=== PATIENT | male | born 1950 | race Caucasian/White ===

== ENCOUNTER 2017-01-18 07:49 | Day surgery (SDC) | payer MEDICARE, OTHER ==
[~2017-01-18 07:49] MED LIST: ASPIRIN EC81 MG PO; CIALIS5 M1 PO; GLUCOSAMINE &1 EAC1 PO; OCUVITE WITH L1 EACH PO; TOPROL XL100 M1 PO; ZOCOR40 M1 PO
[2017-01-18 08:55] LABS: BASO % 0.3 % (0-2); EOS % 2.6 % (0-7); EOSINOPHIL ABSOLUTE COUNT 0.2 tho/cmm (0.0-0.7); HCT-HEMATOCRIT 44.4 % (36.0-53.5); LYMPH % 39.8 % (20-45); LYMPH ABSOLUTE COUNT 2.3 tho/cmm (0.8-4.5); MCH (MEAN CORPUSCULAR HGB) 32.3 pg (28.0-32.0); MCHC MEAN CORPUSCULAR HGB CONC 33.8 % (32.0-36.0); MCV (MEAN CELL VOLUME) 95.7 fl (82.0-96.0); MEAN PLATELET VOLUME 9.1 cmc (9.4-12.4); MONO % 8.9 % (0-12); MONOCYTE ABSOLUTE COUNT 0.5 tho/cmm (0.0-1.2); NEUTROPHIL ABSOLUTE COUNT 2.8 tho/cmm (1.6-8.0); NEUTROPHIL-AUTOMATED 2.8 tho/cmm (1.6-8.0); NEUTROPHILS % 48.4 % (40-80); PLATELET COUNT 193 tho/cmm (150-450); RED BLOOD COUNT 4.64 mil/cmm (4.40-5.70); RED CELL DISTRIBUTION WIDTH 12.7 % (12.4-16.4); WHITE BLOOD COUNT 5.8 tho/cmm (4.0-10.0)
[2017-01-18 09:01] LABS: ANION GAP 9 mmol/L (0-20); BLOOD UREA NITROGEN 9 mg/dl (6-24); CALCIUM 8.4 mg/dl (8.5-10.5); CARBON DIOXIDE-VENOUS 29 mmol/L (22-32); CHLORIDE 108 mmol/l (96-110); CREATININE 0.85 mg/dl (0.60-1.30); GLUCOSE 108 mg/dL (70-110); POTASSIUM 4.1 mmol/L (3.7-5.1); SODIUM 142 mmol/L (135-145); eGFR VALUE FOR BLACK >90 mL/Min
== END 2017-01-18 14:00 ==
LOC: US 07:49 → SHSB 08:12 → ORW 10:38 → PACU 12:11 → SHSB 12:45
PROVIDERS: Anesthesiology
PROC: 0JB50ZZ Excision of Left Neck Subcutaneous Tissue and Fascia, Open Approach (ICD-10-PCS; principal; 2017-01-18)
DX: D17.9 Benign lipomatous neoplasm, unspecified (principal); I10 Essential (primary) hypertension; E78.5 Hyperlipidemia, unspecified; Z87.891 Personal history of nicotine dependence; Z79.899 Other long term (current) drug therapy; Z98.890 Other specified postprocedural states